=== PATIENT | male | born 1960 | race Caucasian/White ===

== ENCOUNTER 2017-10-17 08:02 | Outpatient (RCR) | payer BC, OTHER | END 2017-11-07 15:55 | disposition home or self-care (01) | PROVIDERS: ATTEND Family Medicine | DX: M25.551 Pain in right hip (principal); M25.552 Pain in left hip ==

== ENCOUNTER → 2020-04-07 | Outpatient (CLI) | payer BC, OTHER ==
--- NOTE | 2020-04-07 10:29 | Diagnostic Imaging Report ---
Indication: Back pain. Time of exam: 10:20 AM AP, lateral and coned lumbosacral views of the lumbar spine were obtained. Curvature and alignment is normal. Vertebral body heights are maintained. No compression fracture seen. There is some disc space narrowing at L4-L5 and L5-S1 levels. Impression: Mild lower lumbar degenerative disc disease. No acute bony abnormality is detected. Dictated by: Dictated on workstation # [id number]
== END ==
LOC: RAD 09:54
PROVIDERS: ATTEND Family Medicine
DX: M47.816 Spondylosis without myelopathy or radiculopathy, lumbar region (principal)
CPT/HCPCS: 72100

== ENCOUNTER 2020-05-19 05:38 | Outpatient (RCR) | payer BC ==
[~2020-05-19] VITALS: Ht 180.3 cm; Wt 87.4 kg
[~2020-05-19 05:38] MED LIST: LISI20TA26 PO; LOSA100T57 PO; SIMV40TA25 PO
== END 2020-05-19 09:33 | disposition home or self-care (01) ==
LOC: PREOP 05:38
PROVIDERS: ATTEND Surgery
DX: Z01.812 Encounter for preprocedural laboratory examination (principal); Z12.11 Encounter for screening for malignant neoplasm of colon; R13.10 Dysphagia, unspecified; Z20.822 Contact with and (suspected) exposure to COVID-19
CPT/HCPCS: 87635

== ENCOUNTER 2020-05-23 08:01 | Day surgery (SDC) | payer BC ==
[~2020-05-23] VITALS: Ht 180.3 cm; Wt 87.4 kg
[2020-05-23] VITALS (7 sets, daily range): BP systolic 88–138; BP diastolic 50–78
[2020-05-23] MEDS ORDERED: LACTATED RINGERS 1,000 ML IV ONE (08:04)
[2020-05-23] MEDS ORDERED: LACTATED RINGERS 1,000 ML IV STA (08:13)
[2020-05-23] MEDS ORDERED: HURRICAINE EXT TUBE (BENZOCAINE) XX PRN (08:15)
[2020-05-23] MEDS ORDERED: MIDAZOLAM 2 MG/2 ML (VERSED) VIAL ONE (09:20)
[2020-05-23] MEDS ORDERED: PROPOFOL INJECTION 50 ML IV ONE ×2 (09:21→09:46)
--- NOTE | 2020-05-23 09:29 | Progress Note-Pre Operative ---
Pre-Operative Progress Note H&P Reviewed The H&P was reviewed, patient examined and no changes noted. Date Seen by Provider: May 23, 2020 Time Seen by Provider: : Date H&P Reviewed: May 23, 2020 Time H&P Reviewed: : Pre-Operative Diagnosis: dysphagia, screening colonoscopy ANDRIA BARAHONA DO May 23, 2020 09:29
--- NOTE | 2020-05-23 10:09 | Progress Note-Post Operative ---
Post-Operative Progess Note Surgeon (s)/Underwriting Analyst (s) Surgeon ANDRIA BARAHONA DO Underwriting Analyst: na Pre-Operative Diagnosis dysphagia, screening colonoscopy Post-Operative Diagnosis reflux esophagitis, colon polyp Procedure & Operative Findings Date of Procedure 05/23/20 Procedure Performed/Findings egd c biopsies, colonoscopy c hot bx polypectomy x1 Anesthesia Type per medical advisor Estimated Blood Loss Estimated blood loss (mL): none Specimens/Packing Specimens Removed antrum, ge, transverse polyp ANDRIA BARAHONA DO May 23, 2020 10:09
--- NOTE | 2020-05-23 10:09 | Anesthesia-General Post-Op ---
MAC Patient Condition Mental Status/LOC: Same as Preop Cardiovascular: Satisfactory Nausea/Vomiting: Absent Respiratory: Satisfactory Pain: Controlled Complications: Absent Post Op Complications Complications None Follow Up Care/Instructions Patient Instructions None needed. Anesthesiology Discharge Order Discharge Order Patient is doing well, no complaints, stable vital signs, no apparent adverse anesthesia problems. No complications reported per nursing. NINA PETE CRNA May 23, 2020 10:09
[2020-05-23] MEDS ORDERED: PANT40TA2 PO (10:15)
--- NOTE | 2020-05-23 10:15 | Discharge Inst-Simple/Standard ---
Discharge Inst-Standard Discharge Medications New, Converted or Re-Newed RX: RX on Chart Patient Instructions/Follow Up Plan of Care/Instructions/FU: 2 weeks Niya Activity as Tolerated: Yes Discharge Diet: Regular Diet ANDRIA BARAHONA DO May 23, 2020 10:15
--- NOTE | 2020-05-23 16:41 | OPERATIVE REPORT ---
DATE OF SERVICE: 05/23/2020 PREOPERATIVE DIAGNOSIS: Dysphagia, screening colonoscopy. POSTOPERATIVE DIAGNOSES: Reflux esophagitis, colon polyp. PROCEDURE: EGD with biopsies, colonoscopy with hot biopsy polypectomy x1. SURGEON: Andria Núñez DO ANESTHESIA: Per PUBLIC SAFETY TEACHER. ESTIMATED BLOOD LOSS: None. COMPLICATIONS: None. INDICATIONS: The patient is a 60-year-old male with some slight dysphagia and need screening colonoscopy. He understands risks and benefits of procedure and wished to proceed with procedure. Consent was signed in the chart. DESCRIPTION OF PROCEDURE: The patient was taken to the endoscopy suite, placed in left lateral recumbent position. Timeout was performed. Scope was inserted in mouth, down the esophagus, stomach and into the duodenum without difficulty. No polyps, masses or ulcerations within the duodenum. Scope was slowly retracted back into the stomach where it was further insufflated. Biopsy of the antrum was obtained. No polyps, masses or ulcerations. Scope was retroflexed noting no other pathology. Scope was returned to its normal position, slowly withdrawn to distal esophagus, changes of reflux esophagitis present. Biopsies of the GE junction was obtained. Scope was then slowly retracted back. No other pathology. A digital rectal exam was performed. No palpable polyps, masses or ulcerations. There is an external skin tag or hemorrhoidal tissue. Scope was inserted into the rectum, advanced all the way to cecum with minimal difficulty. Prep was adequate. Scope was then slowly retracted back. There were no polyps, masses or ulcerations within the cecum, ascending colon, transverse colon, a small polyp was present, which hot biopsy polypectomy was performed. Scope was then slowly retracted back. No other polyps, masses or ulcerations within the remainder of the transverse, descending and sigmoid colon. Once in the rectum, scope was retroflexed noting no other pathology. The patient tolerated procedure well without any complications, taken to recovery room in stable condition. RECOMMENDATIONS: The patient will need repeat colonoscopy in 5 years. Any issues before that be seen at that time. The patient will be started on Protonix 40 mg daily. We will discuss excision of the external hemorrhoids tissue if it bothers him. The patient will have followup in 2 weeks. Job ID: [id number] DocumentID: [id number] Dictated Date: 05/23/2020 10:14:18 Molecular Spectroscopist Date: 05/23/2020 16:41:11 Dictated By: ANDRIA NÚÑEZ DO
== END 2020-05-23 10:54 | disposition home or self-care (01) ==
LOC: ENDO 08:01
PROVIDERS: ATTEND Surgery
DX: Z12.11 Encounter for screening for malignant neoplasm of colon (principal); K63.5 Polyp of colon; K21.00 Gastro-esophageal reflux disease with esophagitis, without bleeding; K29.70 Gastritis, unspecified, without bleeding; K64.4 Residual hemorrhoidal skin tags; I10 Essential (primary) hypertension; E78.5 Hyperlipidemia, unspecified; Z20.822 Contact with and (suspected) exposure to COVID-19; Z79.899 Other long term (current) drug therapy; Z83.3 Family history of diabetes mellitus
CPT/HCPCS: 88305; 88342

== ENCOUNTER → 2021-04-13 | Outpatient (CLI) | payer BC ==
[~2021-04-13] MED LIST changes: +PANT40TA2 PO
--- NOTE | 2021-04-13 11:52 | Diagnostic Imaging Report ---
INDICATION: Dysphagia. Procedure was performed in conjunction with Speech Pathology. Video fluoroscopy was performed during the swallowing of barium of multiple consistencies. A total of 1.1 minutes of fluoroscopic time was utilized. Patient ingested thin barium with a spoon as well as through a straw. Patient also ingested applesauce and banana consistency. There was an episode of mild vallecular residue with the banana consistency, which did clear after repeated swallows. No penetration or aspiration was observed. There is normal epiglottic tilt and laryngeal elevation. IMPRESSION: Unremarkable modified barium swallow apart from mild vallecular residue with the banana consistency. No penetration or aspiration was observed. Dictated by: Dictated on workstation # [id number]
== END ==
LOC: RAD 10:00
PROVIDERS: ATTEND Surgery
DX: R13.11 Dysphagia, oral phase (principal)
CPT/HCPCS: 74230

== ENCOUNTER → 2022-08-22 | Outpatient (CLI) | payer BC, OTHER ==
[~2022-08-22] MED LIST changes: -LOSA100T57 PO; +LOSA100T58 PO
--- NOTE | 2022-08-22 16:50 | Diagnostic Imaging Report ---
EXAMINATION: Lumbar spine radiographs, 3 views. COMPARISON: April 07, 2020. HISTORY: 62-year-old male, low back pain. FINDINGS: There are 5 lumbar-type vertebral bodies. There is severe disc height loss at L4-L5 and moderate disc height loss at L5-S1. There is no identified compression deformity or fracture. There are facet degenerative changes at L4-L5 and L5-S1. There are atherosclerotic calcifications. The sacroiliac joints are unremarkable in appearance. IMPRESSION: 1. Disc and facet degenerative changes of the lower lumbar spine at L4-L5 and L5-S1. There is interval disc height loss at L4-L5 compared to April 07, 2020. Dictated by: Dictated on workstation # [id number]
== END ==
LOC: RAD 09:16
PROVIDERS: ATTEND Family Medicine
DX: M51.16 Intervertebral disc disorders with radiculopathy, lumbar region (principal); M47.26 Other spondylosis with radiculopathy, lumbar region; M47.27 Other spondylosis with radiculopathy, lumbosacral region; M51.17 Intervertebral disc disorders with radiculopathy, lumbosacral region
CPT/HCPCS: 72100

== ENCOUNTER → 2022-09-16 | Outpatient (CLI) | payer OTHER | LOC: RAD 07:30 | PROVIDERS: ATTEND Family Medicine | DX: M54.16 Radiculopathy, lumbar region (principal); Z53.9 Procedure and treatment not carried out, unspecified reason ==

== ENCOUNTER → 2022-09-20 | Outpatient (CLI) | payer OTHER ==
--- NOTE | 2022-09-20 10:40 | Diagnostic Imaging Report ---
PROCEDURE: MRI lumbar spine. TECHNIQUE: Multiplanar, multisequence MRI of the lumbar spine was performed without contrast. INDICATION: Chronic lower back pain. COMPARISON: None FINDINGS: For the purposes of this exam, last well-formed disc space is noted the L5-S1 level. Static alignment is maintained. There is no significant anterolisthesis or retrolisthesis. There is no evidence of jumped facets. Vertebral body heights are preserved. There is no acute fracture. Evaluation marrow signal demonstrates Modic type I changes of the adjacent endplates at L4-L5 and L5-S1. There is also intervertebral disc height loss with anterior and posterior disc osteophyte complex formations greatest at these levels. Included portions of distal cord are unremarkable. Conus terminates approximately the L2 level. No abnormal intrathecal filling defects are seen. Pre and paravertebral soft tissue structures are unremarkable. Axial images demonstrate the following: T12-L1 through L2-L3: There is no large disc bulge or focal protrusion. There is no significant spinal canal or neural foraminal stenosis. L3-L4: There is mild broad-based posterior disc bulge with bilateral ligamentum flavum laxity and facet arthropathy. As a result, there is minimal flattening of the anterior thecal sac and minimal narrowing of bilateral neural foramen. L4-L5: There is broad-based posterior disc osteophyte complex formation and bilateral ligamentum flavum laxity and facet arthropathy. As a result, there is hegn-ei-hnbzoexy stenosis of the spinal canal and left neural foramen. There is also severe stenosis on the right. L5-S1: There is broad-based posterior disc bulge with bilateral facet arthropathy. As a result, there is mild stenosis of the spinal canal and moderate stenosis of bilateral neural foramen. IMPRESSION: 1. Multilevel degenerative changes of the lumbar spine greatest the L4-L5 level as above. 2. No acute fracture or dislocation. Dictated by: Dictated on workstation # [id number]
== END ==
LOC: RAD 07:34
PROVIDERS: ATTEND Family Medicine
DX: M51.16 Intervertebral disc disorders with radiculopathy, lumbar region (principal); M47.26 Other spondylosis with radiculopathy, lumbar region; M24.28 Disorder of ligament, vertebrae; M48.061 Spinal stenosis, lumbar region without neurogenic claudication; M51.17 Intervertebral disc disorders with radiculopathy, lumbosacral region; M47.27 Other spondylosis with radiculopathy, lumbosacral region; M48.07 Spinal stenosis, lumbosacral region
CPT/HCPCS: 72148

== ENCOUNTER → 2022-12-10 | Outpatient (RCR) | payer OTHER | END | disposition home or self-care (01) | PROVIDERS: ATTEND Physician Assistant | DX: M54.41 Lumbago with sciatica, right side (principal); G89.29 Other chronic pain ==

== ENCOUNTER 2022-12-26 08:30 | Outpatient (RCR) | payer OTHER | END 2023-01-09 | disposition home or self-care (01) | PROVIDERS: ATTEND Physician Assistant | DX: M54.41 Lumbago with sciatica, right side (principal); G89.29 Other chronic pain ==